=== PATIENT | female | born 1970 | race African-American/Black ===

== ENCOUNTER 2019-04-19 09:26 | Emergency (ER) | payer OTHER, BC, SELFPAY ==
[2019-04-19 09:35] VITALS: BP 116/73; PULSE 89; RESP 16; TEMP 38.5; O2SAT 100
--- NOTE | 2019-04-19 10:01 | ED.GENADULT ---
HPI - General Adult General Chief complaint: Upper Respiratory Infection Stated complaint: cough/fever/sore throat/body aches Time Seen by Provider: 04/19/19 10:01 Source: patient and RN notes reviewed Mode of arrival: ambulatory Limitations: no limitations History of Present Illness HPI narrative: 49-year-old -Mexican female presents with complaints of upper respiratory infection symptoms, fever, body aches, cough, sore throat, and intermittent headaches (not the worst of her life) for 1 day. Tylenol sinus (last on 04/18/19 @19:30) with little relief. Hoa says she could have been exposed to anything was out yesterday at [employer]. Dry cough. Rhinorrhea and nasal congestion. No exacerbating factors. Tactile High fevers with intermittent chills and sweats. No nausea, vomiting, and abdominal pain. Denies chest pain, dyspnea, coughing up blood, difficulty swallowing, jaw pain, dental pain, facial pain, foreign body sensation, and rash. Hoa denies being , LMP 03/29/19. Remains active. Some parts of this dictation were generated by voice recognition software and may contain typographical and/or grammatical inaccuracies. Related Data Allergies Allergy/AdvReac Type Severity Reaction Status Date / Time No Known Allergies Allergy Verified 01/04/19 15:08 Review of Systems Review of Systems: Narrative: CONSTITUTIONAL: Complains of fatigue, fever, chills, sweats. EYES: Denies visual changes, redness, discharge. ENT: Complains of rhinorrhea, congestion, sore throat. Denies otalgia. CARDIOVASCULAR: Denies chest pain, palpitations, edema. RESPIRATORY: Denies dyspnea, wheezing. Complains of dry cough. GASTROINTESTINAL: Denies abdominal pain, nausea, vomiting, diarrhea. GENITOURINARY: Denies dysuria, hematuria, abnormal discharge. SKIN: Denies rash or itching. MUSCULOSKELETAL: Denies acute back pain, joint pain. Complains of myalgia. NEUROLOGIC: Denies numbness or focal weakness. PSYCHIATRIC: Denies anxiety or depression. Complains of intermittent ORTEGA. All systems reviewed & are unremarkable except as noted in HPI and below PMFSH Past Medical History Medical History Ankle fracture, lateral malleolus, closed Healthy adult Surgical History Surgical History No pertinent past surgical history Family History Family History (Updated 04/19/19 @ 10:13 by ADRIANA Ahn) Father Diabetes mellitus Mother Diabetes mellitus Social History Social History (Updated 04/19/19 @ 10:14 by ADRIANA Ahn) Smoking status: Never smoker Second hand tobacco smoke exposure: No Alcohol intake: never Substance use: never Living arrangements: with family Occupation/Education: occupation Gender identity (if verbalized by the patient): Female Comments At time of signature, agree with nurse past medical, surgical, social, and family history. There is no relevant family history pertinent to the presenting complaint. Exam Narrative: Exam Narrative: GENERAL: This is a well-nourished, well-developed patient, in no apparent distress. Speaks in full sentences and ambulates with steady gait without dyspnea. HEAD: normocephalic, atraumatic. EYES: PERRL. Sclera clear/white. Vision is grossly intact. EARS: External ears normal, auditory canals clear and without drainage, TMs normal without perforation. Hearing grossly intact. NOSE: External nose normal with no obvious nasal discharge, nares with mild-redness, clear rhinorrhea. THROAT: Mucous membranes moist, posterior pharynx with PND, mild erythema, no exudate, and normal tonsils. No drainage, no concern for Peritonsillar abscess. No drooling, trismus, or neck swelling. NECK: Neck supple, non-tender without lymphadenopathy, masses or thyromegaly. CARDIOVASCULAR: Regular rate and rhythm without murmurs, gallops, or rubs. RESPIRAT
[2019-04-19 10:12] VITALS: TEMP 38.5
[2019-04-19] MEDS: IBUPROFEN 400 MG TABLET 800 MG PO (10:12)
[2019-04-19 10:13] VITALS: TEMP 38.5
[2019-04-19] MEDS: ACETAMINOPHEN 500 MG TABLET 1000 MG PO (10:13)
[2019-04-19 10:35] VITALS: TEMP 38.4
[2019-04-19 10:37] VITALS: TEMP 38.4
== END 2019-04-19 10:38 | disposition home or self-care (01) ==
PROVIDERS: Emergency Provider Nurse Practitioner Family; PCP Emergency Medicine
DX: B34.9 Viral infection, unspecified (principal)
CPT/HCPCS: 87804; 99213; A9270; G0463

== ENCOUNTER 2019-08-21 14:35 | Emergency (ER) | payer OTHER, BC, SELFPAY ==
--- NOTE | 2019-08-21 14:41 | ED.GENADULT ---
HPI - General Adult General Chief complaint: Skin/Abscess/Foreign Body Stated complaint: INSECT STING/HEADACHE/EARACHE/STOMACH PN/NAUSEA Time Seen by Provider: 08/21/19 14:42 Source: patient Mode of arrival: ambulatory Limitations: no limitations History of Present Illness HPI narrative: 49-year-old female patient presents to the [facility] with complaints of a wound to the back of the right leg for the past 2 days. Patient thinks she got stung by something. Patient states she has been feeling very achy, joint pain, tired. Patient states she has had a slight mucousy cough for the past day and a half. Patient denies fevers, chest pain or shortness of breath. Related Data Allergies Allergy/AdvReac Type Severity Reaction Status Date / Time No Known Allergies Allergy Verified 08/21/19 14:47 Review of Systems Review of Systems: Narrative: CONSTITUTIONAL: Denies fever, chills, or sweats. EYES: Denies visual changes, redness, or discharge. ENT: Denies rhinorrhea, congestion, sore throat, or otalgia. CARDIOVASCULAR: Denies chest pain, palpitations, or edema. RESPIRATORY: Positive cough, denies dyspnea. GASTROINTESTINAL: Denies abdominal pain, nausea, vomiting, or diarrhea. GENITOURINARY: Denies dysuria or hematuria. SKIN: Denies rash or itching. Positive sting to back of right leg. MUSCULOSKELETAL: Denies back pain, positive joint pain, and myalgia. NEUROLOGIC: Denies headache, numbness, or weakness. Positive lethargy PSYCHIATRIC: Denies anxiety or depression. [facility] Past Medical History Medical History Ankle fracture, lateral malleolus, closed Healthy adult Surgical History Surgical History No pertinent past surgical history Family History Family History Father Diabetes mellitus Mother Diabetes mellitus Social History Social History Smoking status: Never smoker Second hand tobacco smoke exposure: No Alcohol intake: never Substance use: never Gender identity (if verbalized by the patient): Female Comments At the time of my signature I agree with nursing past medical history, surgical, social, and family history. There is no relevant family history pertinent to the presenting complaint. Exam Narrative: Exam Narrative: GENERAL: ill-appearing, well-nourished, and in no acute distress. HEAD: Normocephalic, atraumatic. EYES: PERRLA and EOMI. ENT: Nares clear, no rhinorrhea or epistaxis. Mucous membranes moist. Posterior pharynx with no erythema, tonsil larger, exudates or lesions present. NECK: Supple. No lymphadenopathy CHEST: Clear to auscultation. No respiratory distress. Patient able talk in clear complete sentences. No tripoding noted. HEART: Regular rate and rhythm. No murmur heard. Normal peripheral pulses. ABDOMEN: Soft, nontender, nondistended, normal active bowel sounds. EXTREMITIES: Normal range of motion. No edema. SKIN: Warm, dry, no rash. Patient has sting to back of right knee. Does have approximately 9 cm of surrounding erythema, warmth and tenderness to the area. Slightly swollen to the posterior knee area. NEURO: No focal deficits. Alert and oriented x3. Course Vital Signs Vital signs: Vital Signs Temperature 36.1 C L 08/21/19 14:48 Pulse Rate 62 08/21/19 14:48 Respiratory Rate 16 08/21/19 14:48 Blood Pressure 118/74 08/21/19 14:48 Pulse Oximetry 98 08/21/19 14:48 Temperature 36.1 C L 08/21/19 14:48 Pulse Rate 62 08/21/19 14:48 Respiratory Rate 16 08/21/19 14:48 Blood Pressure 118/74 08/21/19 14:48 Pulse Oximetry 98 08/21/19 14:48 Vital signs reviewed. Medical Decision Making Differential Diagnosis Differential Diagnosis: Differential diagnosis: Abscess, cellulitis, hidradenitis, laceration, puncture wound. Discussed with clarence
[2019-08-21 14:48] VITALS: BP 118/74; PULSE 62; RESP 16; TEMP 36.1; O2SAT 98
== END 2019-08-21 15:08 | disposition home or self-care (01) ==
PROVIDERS: Emergency Provider Nurse Practitioner Family; PCP Emergency Medicine
DX: L03.115 Cellulitis of right lower limb (principal); Z20.828 Contact with and (suspected) exposure to other viral communicable diseases
CPT/HCPCS: 99213; G0463

== ENCOUNTER 2019-09-07 09:43 | Emergency (ER) | payer OTHER, BC, SELFPAY ==
--- NOTE | 2019-09-07 09:54 | ED.LOWEXIN ---
HPI - Extremity Injury (Lower) General Chief Complaint: Skin/Abscess/Foreign Body Stated Complaint: L/foot swollen Time Seen by Provider: 09/07/19 09:58 Source: patient and RN notes reviewed Mode of arrival: ambulatory Limitations: no limitations History of Present Illness HPI Narrative: 49 year old female who presents to [facility] care with complaints of pain, swelling, and redness to the dorsal aspect of her left foot starting on Saturday. Patient states that on the the August she was bitten by a yellow jacket and she was prescribed Doxycycline which she never fully completed. Patient states that she was walking with her friend on Saturday and she thought maybe her shoe laces were too tight, states that she did not have an injury to her foot. The dorsal aspect of her left foot is mildly red with some swelling and warmth, no tingling or numbness to her foot, strong pulses to left foot, states that pain is increased with ambulation. MD complaint: other (swelling, redness, and warmth to dorsal aspect of left foot) Onset (ago): day(s) (3) Injury: Left: foot Type of Injury: unknown Place: street/outdoors Severity: severe Severity scale (1-10): 10 Relieving factors: cold therapy and rest Exacerbating factors: weight bearing Context: other (unsure ) Associated symptoms: swelling Other symptoms: none Treatments prior to arrival: cold therapy Related Data Home Medications Medication Instructions Recorded Confirmed doxycycline hyclate 100 mg BID 09/07/19 09/07/19 Allergies Allergy/AdvReac Type Severity Reaction Status Date / Time No Known Allergies Allergy Verified 08/21/19 14:47 Review of Systems Review of Systems: Narrative: CONSTITUTIONAL: Denies fever, chills, or sweats. EYES: Denies visual changes, redness, or discharge. ENT: Denies rhinorrhea, congestion, sore throat, or otalgia. CARDIOVASCULAR: Denies chest pain, palpitations, or edema. RESPIRATORY: Denies cough or dyspnea. GASTROINTESTINAL: Denies abdominal pain, nausea, vomiting, or diarrhea. GENITOURINARY: Denies dysuria or hematuria. SKIN: Denies rash or itching, redness and warmth dorsal aspect of left foot MUSCULOSKELETAL: Denies back pain, joint pain,positive for swelling, warmth and redness to left foot NEUROLOGIC: Denies headache, numbness, or weakness. PSYCHIATRIC: Denies anxiety or depression. All systems reviewed & are unremarkable except as noted in HPI and below PMFSH Past Medical History Medical History Ankle fracture, lateral malleolus, closed Healthy adult Surgical History Surgical History No pertinent past surgical history Family History Family History Father Diabetes mellitus Mother Diabetes mellitus Social History Social History Smoking status: Never smoker Second hand tobacco smoke exposure: No Alcohol intake: never Substance use: never Gender identity (if verbalized by the patient): Female Comments At time of signature, agree with nursing past medical, surgical, social and family history. There is no relevant family history pertinent to the presenting complaint Exam Narrative: Exam Narrative: GENERAL: Well-appearing, well-nourished, and in no acute distress. HEAD: Normocephalic, atraumatic. EYES: PERRLA and EOMI. ENT: Nares clear, no rhinorrhea or epistaxis. Mucous membranes moist. NECK: Supple.no lymphadenopathy CHEST: Clear to auscultation. No respiratory distress.SAO2 100% on room air HEART: Regular rate and rhythm. No murmur heard. Normal peripheral pulses. ABDOMEN: Soft, non tender, non distended, normal active bowel sounds. EXTREMITIES: Normal range of motion, swelling dorsal aspect of left foot with pain, redness and warmth. SKIN: Warm, dry, no rash mild redness, warmth and pain dorsal left foot. N
[2019-09-07 09:57] VITALS: BP 106/73; PULSE 59; RESP 20; TEMP 36.4; O2SAT 100
== END 2019-09-07 10:28 | disposition home or self-care (01) ==
PROVIDERS: Emergency Provider Registered Nurse; PCP Emergency Medicine
DX: L03.116 Cellulitis of left lower limb (principal)
CPT/HCPCS: 99213; G0463

== ENCOUNTER 2019-09-08 06:18 | Emergency (ER) | payer OTHER, BC, SELFPAY ==
[2019-09-08 06:40] VITALS: BP 125/67; PULSE 65; RESP 20; TEMP 36.9; O2SAT 100
--- NOTE | 2019-09-08 07:11 | ED.GENADULT ---
HPI - General Adult General Chief complaint: Skin/Abscess/Foreign Body Stated complaint: Bit by something Time Seen by Provider: 09/08/19 07:01 History of Present Illness HPI narrative: Patient presents from home for multiple complaints. First she had a sore left foot yesterday and went to urgent care. She said it was red and swollen. She was given Keflex. She said the pain is still there, but there is no signs of redness or swelling. She said she woke up this morning with a severe headache, and left-sided arm chest and back pain. He gives a headache and the side pain 9 out of. Yesterday she took a Tylenol. He has had no fever, chills, sweats. Her appetite and bowels are normal. She has not been sick recently. She has no medical problems, does not take any prescription medication. She works as a [employer], and does [employer]. She is as needed, and has not worked recently. She has had no direct exposure to COVID. Onset (ago): hour(s) Location: chest, back, upper extremity and lower extremity Severity: severe Severity scale (1-10): 9 Relieving factors: none Exacerbating factors: none Associated symptoms: headaches Related Data Home Medications Medication Instructions Recorded Confirmed doxycycline hyclate 100 mg PO BID 09/07/19 09/07/19 Allergies Allergy/AdvReac Type Severity Reaction Status Date / Time No Known Allergies Allergy Verified 09/08/19 06:38 Review of Systems Review of Systems: Narrative: CONSTITUTIONAL: Denies fever, chills, or sweats. EYES: Denies visual changes, redness, or discharge. ENT: Denies rhinorrhea, congestion, sore throat, or otalgia. CARDIOVASCULAR: Denies chest pain, palpitations, or edema. RESPIRATORY: Denies cough or dyspnea. GASTROINTESTINAL: Denies abdominal pain, nausea, vomiting, or diarrhea. GENITOURINARY: Denies dysuria or hematuria. SKIN: Denies rash or itching. MUSCULOSKELETAL: Denies back pain, joint pain, but has myalgia. NEUROLOGIC: He has headache, but not numbness, or weakness. . [facility] Past Medical History Medical History Ankle fracture, lateral malleolus, closed Healthy adult Surgical History Surgical History No pertinent past surgical history Social History Social History Smoking status: Never smoker Second hand tobacco smoke exposure: No Alcohol intake: never Substance use: never Gender identity (if verbalized by the patient): Female Exam Narrative: Exam Narrative: GENERAL: Laying on her right side crying, head wrapped in a scar, mask present, wrapped in furry blanket. HEAD: Normocephalic, atraumatic. EYES: PERRLA and EOMI. ENT: Nares clear, no rhinorrhea or epistaxis. Mucous membranes moist. NECK: Supple. CHEST: Clear to auscultation. No respiratory distress. HEART: Regular rate and rhythm. No murmur heard. Normal peripheral pulses. ABDOMEN: Soft, nontender, nondistended, normal active bowel sounds. EXTREMITIES: Normal range of motion. No edema. SKIN: Warm, dry, no rash. NEURO: No focal deficits. Alert and oriented x3. PSYCH: Crying. Course Reevaluation(s) Reevaluation #1: Went into check on the patient, and she is sleeping comfortably on her right side. She said her pain is better is down to an 8 out of 10. Date: 09/08/19 Time: 08:27 Reevaluation #2: Went back in the room to check on the patient and she was sleeping soundly. She said her pain is better she is ready to go home. I offered some pain medicine. Date: 09/08/19 Time: 10:38 Vital Signs Vital signs: Vital Signs Temperature 98.5 F 09/08/19 06:40 Pulse Rate 65 09/08/19 06:40 Respiratory Rate 20 09/08/19 06:40 Blood Pressure 125/67 09/08/19 06:40 Pulse Oximetry 100 09/08/19 06:40 Temperature 98.5 F 09/08/19 06:40 Pulse Rate 62 09/08/19 09:15 Respiratory Rate 16 09/08/19 09:15 Blood Press
--- NOTE | 2019-09-08 07:17 | PC.NURSE ---
ASSUMED CARE FROM FAIZA NAVARRO AT THIS TIME.
[2019-09-08] MEDS: diphenhydrAMINE HCl INJ 50 MG/ML VIAL 25 MG IV PUSH (07:30)
[2019-09-08] MEDS: SODIUM CHLORIDE 0.9% IV 1,000 ML 999 ML IV CONT (07:30)
[2019-09-08] MEDS: KETOROLAC 30 MG/ML VIAL (*BKC) IV PUSH (07:30)
[2019-09-08 07:42] LABS: Basophils Percent Auto 0.6 % (0.2-1.2); Eosinophils Percent Auto 0.6 % (0-4.4); Hematocrit 34.5 % (37.0-47.0); Hemoglobin 11.5 g/dL (12.0-15.0); Immature Granulocyte Absolute 0.01 K/mm3 (0.00-0.031); Immature Granulocyte Percent A 0.2 % (0-0.5); Lymphocytes Absolute Auto 1.63 K/mm3 (0.9-3.2); Lymphocytes Percent Auto 26.3 % (18.3-44.2); Mean Corpuscular HGB Conc 33.3 g/dl (32-36); Mean Corpuscular Hemoglobin 31.3 pg (26-34); Mean Corpuscular Volume 93.8 fl (80-100); Mean Platelet Volume 9.1 fl (7.4-10.4); Monocytes Absolute Auto 0.5 K/mm3 (0.1-0.6); Monocytes Percent Auto 8.2 % (2.6-8.5); Neutrophils Percent Auto 64.1 % (45.5-73.1); Platelet Count Result 326 k/mm3 (150-375); Red Blood Count 3.68 M/mm3 (4.2-5.4); Red Cell Distribution Width 12.8 % (11.5-14.5); White Blood Count 6.2 K/mm3 (4.5-10.0)
[2019-09-08 07:44] LABS: Alanine Aminotransferase 13 U/L (4-35); Albumin Level 3.7 g/dL (3.5-5.1); Alkaline Phosphatase 44 U/L (38-126); Anion Gap 9.9 mmol/L (7-16); Aspartate Amino Transferase 22 U/L (14-36); Bilirubin,Total 0.4 mg/dL (0.2-1.3); Blood Urea Nitrogen 12 mg/dL (7-17); Calcium 8.9 mg/dL (8.4-10.2); Carbon Dioxide 27 mmol/L (22-30); Chloride 102 mmol/L (98-107); Creatine Kinase 237 U/L (30-135); Estimated CRCL calculation 77 ml/min; Estimated Glomerular Filt Rate > 60; Glucose 102 mg/dL (65-105); Potassium 3.9 mmol/L (3.4-5.0); Sodium 135 mmol/L (137-145)
[2019-09-08 07:46] LABS: Add Urine Microscopic? NO; Appearance Urine Clear (Clear); Bilirubin Urine Negative (Negative); Blood Urine Negative (Negative); Color Urine Straw (Yellow); Glucose Urine UA Negative (Negative); Ketones Urine Negative (Negative); Leukocyte Esterase Ur Negative LEU/UL (Negative); Mucus Urine Rare /lpf; Nitrate Urine Negative (Negative); Protein Urine Negative (Negative); RBC Urine 0-2 /hpf (0-2); Specific Grav Ur 1.014 (1.001-1.035); Squamous Epithelial Cell Urine Moderate /hpf (Few); Urobilinogen Urine Negative mg/dL (<2.0)
[2019-09-08 08:06] VITALS: BP 130/90; PULSE 57; RESP 16; O2SAT 97
[2019-09-08 08:46] VITALS: BP 115/65; PULSE 65; RESP 16; O2SAT 100
[2019-09-08] MEDS: methylPREDNISolone SOD SUCC 125 MG VIAL IV PUSH (08:46)
[2019-09-08 09:15] VITALS: BP 127/74; PULSE 62; RESP 16; O2SAT 97
[2019-09-08 10:50] VITALS: BP 135/74; PULSE 60; RESP 16; O2SAT 98
== END 2019-09-08 10:51 | disposition home or self-care (01) ==
PROVIDERS: Emergency Provider Emergency Medicine; PCP Emergency Medicine
DX: R51 Headache (principal); M79.672 Pain in left foot; M54.9 Dorsalgia, unspecified; M79.602 Pain in left arm
CPT/HCPCS: 36415; 80053; 81003; 82550; 85025; 96361; 96365; 96375; 99284; J0131; J1200; J1885; J2930; J7030

== ENCOUNTER 2020-07-29 21:29 | Emergency (ER) | payer OTHER, BC, SELFPAY ==
--- NOTE | ~2020-07-29 | CT_ITS ---
EXAMINATION: CT soft tissue neck w con DATE: 07/29/2020 23:38 INDICATION: Neck pain and sore throat TECHNIQUE: Computed tomography (CT) of the neck was performed with 75 cc of Omnipaque 350 intravenous contrast. The dose-length product (DLP) was 474.67 mGy-cm. Automated exposure control and iterative reconstruction technique were employed. COMPARISON: 04/10/2015 FINDINGS: There is mild motion artifact. A punctate calcification is noted in the right thyroid lobe. The submandibular and parotid glands are symmetric. There is no lymphadenopathy. There are no masses identified. The vasculature is patent. The airway is unremarkable. There is moderate cervical spondy losis. The orbits are unremarkable. The superior mediastinum is unremarkable. Visualized sinuses and mastoid air cells are well aerated. IMPRESSION: 1. No CT correlate for the patient's symptoms. Reviewed, dictated and finalized at location A.
[2020-07-29 21:44] VITALS: BP 143/89; PULSE 70; RESP 18; TEMP 37.1; O2SAT 100
--- NOTE | 2020-07-29 22:06 | ED.NECK ---
HPI - Neck Pain/Injury General Chief Complaint: Neck Pain/Injury <Jakob Edwards MD - Last Filed: 07/31/20 19:09> Stated Complaint: Neck/throat pain <Jakob Edwards MD - Last Filed: 07/31/20 19:09> Time Seen by Provider: 07/29/20 21:59 <Jakob Edwards MD - Last Filed: 07/31/20 19:09> History of Present Illness HPI Narrative: Severe neck pain for the past 22 days. Presents when she woke up yesterday morning. Diffuse across then upper back and neck. Worse with any movement of the neck or head. She has had a sore throat for the past few days. No weakness, numbness. Unsure about fever. She has never had this pain before. She has not taken anything for the pain. <Jakob Edwards MD - Last Filed: 07/31/20 19:09> Related Data Home Medications: Home Medications Medication Instructions Recorded Confirmed amoxicillin-pot clavulanate tablet 07/29/20 <Jakob Edwards MD - Last Filed: 07/31/20 19:09> Allergies/Adverse Reactions: Allergies Allergy/AdvReac Type Severity Reaction Status Date / Time No Known Allergies Allergy Verified 07/29/20 21:29 <Jakob Edwards MD - Last Filed: 07/31/20 19:09> Review of Systems Review of Systems: All systems reviewed & are unremarkable except as noted in HPI and below <Jakob Edwards MD - Last Filed: 07/31/20 19:09> Constitutional: Constitutional: Denies weakness <Jakob Edwards MD - Last Filed: 07/31/20 19:09> Eyes: Eyes: Reports change in vision <Jakob Edwards MD - Last Filed: 07/31/20 19:09> ENT: Reports nasal congestion and Reports sore throat <Jakob Edwards MD - Last Filed: 07/31/20 19:09> PMFSH Past Medical History Medical History: Medical History Ankle fracture, lateral malleolus, closed Healthy adult <Jakob Edwards MD - Last Filed: 07/31/20 19:09> Surgical History Surgical History: Surgical History No pertinent past surgical history <Jakob Edwards MD - Last Filed: 07/31/20 19:09> Family History Family History: Family History Father Diabetes mellitus Mother Diabetes mellitus <Jakob Edwards MD - Last Filed: 07/31/20 19:09> Social History Social History: Social History Smoking status: Never smoker Second hand tobacco smoke exposure: No Alcohol intake: never Substance use: never Gender identity (if verbalized by the patient): Female <Jakob Edwards MD - Last Filed: 07/31/20 19:09> Exam Const: General: healthy appearing, alert, awake, in distress moderate, anxious and uncomfortable <Jakob Edwards MD - Last Filed: 07/31/20 19:09> Nutritional Appearance: well nourished <Jakob Edwards MD - Last Filed: 07/31/20 19:09> Orientation/consciousness: patient oriented x3 <Jakob Edwards MD - Last Filed: 07/31/20 19:09> HENMT: Head: normal to inspection <Jakob Edwards MD - Last Filed: 07/31/20 19:09> Face and sinus: normal facial exam and sinuses nontender <Jakob Edwards MD - Last Filed: 07/31/20 19:09> Eyes: Pupils: Equal, round and reactive pupils present <Jakob Edwards MD - Last Filed: 07/31/20 19:09> Neck: Neck: no lymphadenopathy <Jakob Edwards MD - Last Filed: 07/31/20 19:09> Chest: Chest palpation & inspection: normal inspection of the chest and no tenderness <Jakob Edwards MD - Last Filed: 07/31/20 19:09> Resp: Effort & Inspection: normal respiratory effort <Jakob Edwards MD - Last Filed: 07/31/20 19:09> Auscultation: clear to auscultation bilaterally <Jakob Edwards MD - Last Filed: 07/31/20 19:09> Cardio: Rate: regular rate <Jakbo Edwards MD - Last Filed: 07/31/20 19:09> Rhythm: regular rhythm <Jakob Edwards,
[2020-07-29] MEDS: KETOROLAC (*BKC) 60 MG/2 ML VIAL IM (22:24)
[2020-07-29] MEDS: diazePAM INJ (*CRX) 10 MG/2 ML SYRINGE 5 MG IM (22:25)
[2020-07-29 22:54] LABS: Basophils Percent Auto 0.3 % (0.2-1.2); Eosinophils Absolute Auto 0.1 K/mm3 (0-0.3); Eosinophils Percent Auto 0.6 % (0-4.4); Hematocrit 34.6 % (37.0-47.0); Hemoglobin 11.5 g/dL (12.0-15.0); Immature Granulocyte Absolute 0.02 K/mm3 (0.00-0.031); Immature Granulocyte Percent A 0.2 % (0-0.5); Lymphocytes Absolute Auto 3.38 K/mm3 (0.9-3.2); Lymphocytes Percent Auto 38.6 % (18.3-44.2); Mean Corpuscular HGB Conc 33.2 g/dl (32-36); Mean Corpuscular Hemoglobin 31.3 pg (26-34); Mean Platelet Volume 9.2 fl (7.4-10.4); Monocytes Absolute Auto 0.6 K/mm3 (0.1-0.6); Monocytes Percent Auto 6.9 % (2.6-8.5); Neutrophils Absolute Auto 4.7 K/mm3 (1.3-6.7); Neutrophils Percent Auto 53.4 % (45.5-73.1); Platelet Count Result 304 k/mm3 (150-375); Red Blood Count 3.68 M/mm3 (4.2-5.4); Red Cell Distribution Width 13.2 % (11.5-14.5); White Blood Count 8.8 K/mm3 (4.5-10.0)
[2020-07-29 23:03] LABS: Anion Gap 10 mmol/L (8-16); Blood Urea Nitrogen 14 mg/dL (7-17); Calcium 9.1 mg/dL (8.4-10.2); Carbon Dioxide 22 mmol/L (22-30); Chloride 106 mmol/L (98-107); Estimated CRCL calculation 85 ml/min; Estimated Glomerular Filt Rate > 60; Glucose 115 mg/dL (65-105); Potassium 3.6 mmol/L (3.4-5.0); Sodium 138 mmol/L (137-145)
[2020-07-30 00:20] VITALS: BP 111/65; PULSE 84; RESP 18; O2SAT 98
--- NOTE | 2020-07-30 00:26 | PC.NURSE ---
Dr Negro made aware of patients continued neck pain
[2020-07-30] MEDS: CYCLOBENZAPRINE HCL 10 MG TABLET PO (01:40)
[2020-07-30 02:00] VITALS: BP 106/61; PULSE 74; RESP 16; O2SAT 99
== END 2020-07-30 02:15 | disposition home or self-care (01) ==
PROVIDERS: Emergency Medicine; Emergency Provider Emergency Medicine; PCP Emergency Medicine
DX: M62.830 Muscle spasm of back (principal)
CPT/HCPCS: 36415; 70491; 80048; 81025; 85025; 87081; 87880; 96372; 99284; A9270; J1885; J3360; Q9967

== ENCOUNTER 2023-04-19 10:09 | Emergency (ER) | payer BC, SELFPAY ==
[2023-04-19 10:10] VITALS: BP 133/68; PULSE 68; RESP 16; TEMP 36.7; O2SAT 100
--- NOTE | 2023-04-19 10:34 | ED.GENADULT ---
HPI - General Adult General Chief complaint: Unspecified Stated complaint: body aches Time Seen by Provider: 04/19/23 10:17 Source: patient Mode of arrival: ambulatory Limitations: no limitations History of Present Illness HPI narrative: This is a 53-year-old female who presents to the ED for flu-like symptoms for the past 4 days. Patient reports that 3 days ago she was seen virtually by her PCP given Tamiflu for probable flu. Reports that it seems like that Tamiflu does not help.. Reports that she feels very malaised and is concerned for dehydration. Reports diffuse body aches. Endorses congestion. denies fevers, chills, chest pain, shortness of breath, cough. Related Data Home Medications Medication Instructions Recorded Confirmed amoxicillin 875 mg-potassium tablet 07/29/20 clavulanate 125 mg tablet Allergies Allergy/AdvReac Type Severity Reaction Status Date / Time No Known Allergies Allergy Verified 04/19/23 10:10 Review of Systems Review of Systems: All systems as dictated in [facility] Past Medical History Medical History (Updated 04/19/23 @ 12:16 by Alex Ryder PA-C) Ankle fracture, lateral malleolus, closed Healthy adult Surgical History Surgical History No pertinent past surgical history Family History Family History Father Diabetes mellitus Mother Diabetes mellitus Social History Social History Smoking status: Never smoker Second hand tobacco smoke exposure: No Alcohol intake: never Substance use: never Living arrangements: with family Occupation/Education: occupation Gender identity (if verbalized by the patient): Female Exam Narrative: GENERAL: Well-appearing, well-nourished, and in no acute distress. HEAD: Normocephalic, atraumatic. EYES: PERRLA and EOMI. ENT: Nares clear, no rhinorrhea or epistaxis. Mucous membranes moist. Oropharynx without tonsillar hypertrophy exudate or other lesions. NECK: Supple. No adenopathy or masses. CHEST: No respiratory distress. Clear to auscultation. No wheezes rales or rhonchi HEART: Regular rate and rhythm. No murmur heard. Normal peripheral pulses. ABDOMEN: Soft, nontender, nondistended, normal active bowel sounds. MSK: Normal range of motion. No edema. SKIN: Warm, dry, no rash. NEURO: Alert and oriented x3. No focal deficits. PSYCH: Normal mood and affect. Course Vital Signs Vital signs: Vital Signs Temperature 98.1 F 04/19/23 10:10 Pulse Rate 68 04/19/23 10:10 Respiratory Rate 16 04/19/23 10:10 Blood Pressure 133/68 04/19/23 10:10 Pulse Oximetry 100 04/19/23 10:10 Oxygen Delivery Room Air 04/19/23 10:10 Temperature 98.3 F 04/19/23 12:00 Pulse Rate 88 04/19/23 12:00 Respiratory Rate 16 04/19/23 12:00 Blood Pressure 136/74 04/19/23 12:00 Pulse Oximetry 100 04/19/23 12:00 Oxygen Delivery Room Air 04/19/23 10:10 Medical Decision Making MDM Narrative Medical decision making narrative: This is a 53-year-old female who presents to the ED for chief complaint of flu-like symptoms over the past week. She was started on Tamiflu by PCP after virtual appointment. Vitals are normal. Exam is unremarkable. Lab work grossly benign. Viral swabs are actually negative today. Symptoms are consistent with viral syndrome but she does not appear to have flu. Instructed to stop taking Tamiflu. Pt will be discharged in stable condition. Return precautions given and supportive measures discussed. Pt is understanding and agreeable with plan for discharge and follow-up with PCP. Vital Signs Vital Signs: Vital Signs Temperature 98.1 F 04/19/23 10:10 Pulse Rate 68 04/19/23 10:10 Respiratory Rate 16 04/19/23 10:10 Blood Pressure 133/68 04/19/23 10:10 Pulse Oximetry 100 08
[2023-04-19 11:18] LABS: Appearance Urine Clear (Clear); Bilirubin Urine Negative (Negative); Blood Urine Negative (Negative); Color Urine Yellow (Yellow); Glucose Urine UA Negative (Negative); Ketones Urine Negative (Negative); Leukocyte Esterase Ur Negative LEU/UL (Negative); Nitrate Urine Negative (Negative); Protein Urine Negative (Negative); Urobilinogen Urine 0.2 mg/dL (<2.0); pH Urine >=9.0 (5.0-9.0)
[2023-04-19] MEDS: SODIUM CHLORIDE 0.9% IV 1,000 ML 999 ML IV CONT (11:18)
[2023-04-19] MEDS: KETOROLAC 15 MG/ML VIAL (*BKC) IV PUSH (11:18)
[2023-04-19 11:25] LABS: Add Urine Microscopic? NO
[2023-04-19 11:49] LABS: Influenza A QL RT-PCR Negative (Negative); Influenza B QL RT-PCR Negative (Negative); RSV RNA, RT-PCR Negative (Negative); SARS-CoV-2 RNA PCR Negative (Negative)
[2023-04-19 11:49] LABS: Basophils Percent Auto 0.5 % (0.2-1.2); Eosinophils Percent Auto 0.7 % (0-4.4); Hematocrit 36.3 % (37.0-47.0); Immature Granulocyte Absolute 0.01 K/mm3 (0.00-0.031); Immature Granulocyte Percent A 0.2 % (0-0.5); Lymphocytes Absolute Auto 2.38 K/mm3 (0.9-3.2); Lymphocytes Percent Auto 39.7 % (18.3-44.2); Mean Corpuscular HGB Conc 33.1 g/dl (32-36); Mean Corpuscular Hemoglobin 30.7 pg (26-34); Mean Corpuscular Volume 92.8 fl (80-100); Mean Platelet Volume 8.9 fl (7.4-10.4); Monocytes Absolute Auto 0.9 K/mm3 (0.1-0.6); Monocytes Percent Auto 14.2 % (2.6-8.5); Neutrophils Absolute Auto 2.7 K/mm3 (1.3-6.7); Neutrophils Percent Auto 44.7 % (45.5-73.1); Platelet Count Result 279 k/mm3 (150-375); Red Blood Count 3.91 M/mm3 (4.2-5.4); Red Cell Distribution Width 13.5 % (11.5-14.5)
[2023-04-19 11:59] LABS: Alanine Aminotransferase 14 U/L (6-35); Alkaline Phosphatase 68 U/L (38-126); Anion Gap 5 mmol/L (8-16); Aspartate Amino Transferase 25 U/L (14-36); Bilirubin,Total 0.7 mg/dL (0.2-1.3); Blood Urea Nitrogen 9 mg/dL (7-17); Calcium 8.9 mg/dL (8.4-10.2); Carbon Dioxide 27 mmol/L (22-30); Chloride 106 mmol/L (98-107); Estimated CRCL calculation 67 ml/min; Estimated Glomerular Filt Rate > 60; Glucose 95 mg/dL (65-110); Potassium 3.9 mmol/L (3.4-5.0); Sodium 138 mmol/L (137-145)
[2023-04-19 12:00] VITALS: BP 136/74; PULSE 88; RESP 16; TEMP 36.8; O2SAT 100
== END 2023-04-19 12:43 | disposition home or self-care (01) ==
PROVIDERS: Emergency Provider Physician Assistant; PCP Nurse Practitioner Family
DX: B34.9 Viral infection, unspecified (principal); Z20.822 Contact with and (suspected) exposure to COVID-19
CPT/HCPCS: 36415; 80053; 81003; 85025; 87637; 96361; 96374; 99284; J1885; J7030